=== PATIENT | female | born 1995 | race Caucasian/White ===

== ENCOUNTER 2022-01-23 16:08 | Inpatient (IN) | payer MEDICAID, SELFPAY ==
[~2022-01-23] VITALS: Ht 170.2 cm; Wt 61.8 kg
[2022-01-23 17:22] LABS: HEMATOCRIT 39.4 % (36.0-47.0); MEAN CORPUSCULAR VOLUME 81.9 fl (80.0-96.0); PLATELET COUNT, AUTOMATED 238 10^3/uL (150-450); RED BLOOD COUNT 4.81 10^6/uL (4.00-5.40); WHITE BLOOD COUNT 7.3 10^3/uL (4.0-10.0)
[2022-01-23 17:49] LABS: ETHYL ALCOHOL (ETHANOL) 0.003 % (0.000-0.010)
[2022-01-23 17:50] LABS: BILIRUBIN,DIRECT 0.3 MG/DL (<0.4)
[2022-01-23 17:51] LABS: ACETAMINOPHEN LEVEL < 2.0 UG/ML (10.0-20.0); ALBUMIN 4.5 G/DL (3.2-5.2); ALKALINE PHOSPHATASE 57 U/L (46-116); ALT/SGPT 17 U/L (7.0-40); AST/SGOT 27 U/L (<34); BILIRUBIN,TOTAL 0.9 MG/DL (0.3-1.2); BLOOD UREA NITROGEN 20 MG/DL (9-23); CALCIUM LEVEL 9.4 MG/DL (8.5-10.1); CARBON DIOXIDE LEVEL 20 MMOL/L (20-31); CHLORIDE LEVEL 108 MMOL/L (98-107); CREATININE FOR GFR 0.67 MG/DL (0.55-1.30); GLOMERULAR FILTRATION RATE > 60.0 (>60); GLUCOSE, FASTING 82 MG/DL (60-100); POTASSIUM SERUM 3.7 MMOL/L (3.5-5.1); SALICYLATE LEVEL < 3.0 MG/DL (<30); SODIUM LEVEL 142 MMOL/L (136-145); TOTAL PROTEIN 7.8 G/DL (5.7-8.2)
[2022-01-23 18:34] LABS: HCG, SERUM QUALITATIVE NEGATIVE (NEGATIVE)
[2022-01-23 20:22] LABS: THYROID STIMULATING HORMONE 0.916 uIU/ML (0.55-4.78)
[2022-01-23] MEDS ORDERED: MAALOX 30 ML SUSP *UDC PO PRN (21:15)
[2022-01-23] MEDS ORDERED: MOM 30ML SUSPENSION UDC PO PRN (21:15)
[2022-01-24 00:12] LABS: RSV AMPLIFICATION NEGATIVE (NEGATIVE)
[2022-01-24] MEDS ORDERED: HOME MED LIST COMPLETE! XX SCH (01:20)
[2022-01-24] MEDS ORDERED: MIDAZOLAM INJ 2MG/2ML VIAL IM ONE (03:00)
[2022-01-24 03:48] LABS: AMPHETAMINES LEVEL URINE NEGATIVE (NEGATIVE); BARBITURATES URINE NEGATIVE (NEGATIVE); BENZODIAZEPINES URINE NEGATIVE (NEGATIVE); CANNABINOIDS URINE NEGATIVE (NEGATIVE); COCAINE METABOLITE URINE NEGATIVE (NEGATIVE); METHADONE URINE NEGATIVE (NEGATIVE); OPIATES URINE NEGATIVE (NEGATIVE); PHENCYCLIDINE URINE NEGATIVE (NEGATIVE)
[2022-01-24 06:02] VITALS: BP 120/74
[2022-01-24 18:08] VITALS: BP 115/63
[2022-01-24] MEDS: OLANZapine 5 MG TAB PO SCH (21:00)
[2022-01-25 06:21] VITALS: BP 131/75
[2022-01-25] MEDS: OLANZapine 5 MG TAB PO SCH ×2 (08:24→21:15)
[2022-01-25 18:15] VITALS: BP 146/75
[2022-01-26 06:53] VITALS: BP 117/86
[2022-01-26] MEDS: OLANZapine 5 MG TAB PO SCH ×2 (10:26→21:11)
[2022-01-26] MEDS ORDERED: BENZTROPINE 1 MG TAB PO ONE (10:50)
[2022-01-26 18:00] VITALS: BP 147/81
[2022-01-26] MEDS: CEPACOL LOZENGE PO PRN (18:51)
[2022-01-27 06:48] VITALS: BP 117/66
[2022-01-27] MEDS: OLANZapine 5 MG TAB PO SCH ×2 (09:24→21:00)
[2022-01-27 16:04] VITALS: BP 135/80
[2022-01-28 06:31] VITALS: BP 110/70
[2022-01-28] MEDS: OLANZapine 5 MG TAB PO SCH (09:40)
[2022-01-28] MEDS: OLANZapine ORAL DISINTEGRATING TAB 5MG PO PRN (18:20)
[2022-01-28] MEDS ORDERED: OLANZapine 10 MG TAB PO SCH (21:00)
[2022-01-29] MEDS: OLANZapine ORAL DISINTEGRATING TAB 5MG PO PRN (09:40)
[2022-01-29] MEDS: hydrOXYzine 50 MG TAB PO PRN ×2 (10:41→22:31)
[2022-01-29] MEDS: PALIPERIDONE 3MG ER TAB (INVEGA) PO SCH (20:54)
[2022-01-30 06:00] VITALS: BP 127/78
[2022-01-30 08:05] LABS: CHOLESTEROL RISK RATIO 5.34 (<5); HDL CHOLESTEROL 27.3 MG/DL (>40); LDL CHOLESTEROL 99.9 MG/DL (<100)
[2022-01-30] MEDS: OLANZapine ORAL DISINTEGRATING TAB 5MG PO PRN (10:42)
[2022-01-30 19:09] VITALS: BP 104/60
[2022-01-30] MEDS: PALIPERIDONE 3MG ER TAB (INVEGA) PO SCH (20:51)
[2022-01-30 23:30] VITALS: BP 128/88
[2022-01-30] MEDS ORDERED: BENZTROPINE 1 MG TAB PO ONE (23:40)
[2022-01-30] MEDS ORDERED: LORazepam 1 MG TAB PO ONE (23:40)
[2022-01-31 06:00] VITALS: BP 106/63
[2022-01-31] MEDS: METAMUCIL (PSYLLIUM) PACKET PO SCH (10:20)
[2022-01-31] MEDS: CEPACOL LOZENGE PO PRN (15:25)
[2022-01-31 16:24] VITALS: BP 110/78
[2022-01-31] MEDS: BENZTROPINE 1 MG TAB PO PRN (19:01)
[2022-01-31] MEDS: PALIPERIDONE 3MG ER TAB (INVEGA) PO SCH (21:42)
[2022-01-31] MEDS: ACETAMINOPHEN TAB 650MG DOSE (2X325MG) PO PRN (21:42)
[2022-02-01] MEDS: MIRALAX *UNIT DOSE* 17GM PACKET PO SCH (09:00)
[2022-02-01] MEDS: METAMUCIL (PSYLLIUM) PACKET PO SCH (09:00)
[2022-02-01] MEDS: PALIPERIDONE 3MG ER TAB (INVEGA) PO SCH (21:32)
[2022-02-01] MEDS: CEPACOL LOZENGE PO PRN (22:51)
[2022-02-01] MEDS: OLANZapine ORAL DISINTEGRATING TAB 5MG PO PRN (22:51)
[2022-02-02 06:40] VITALS: BP 111/71
[2022-02-02] MEDS: MIRALAX *UNIT DOSE* 17GM PACKET PO SCH (09:00)
[2022-02-02 16:44] VITALS: BP 112/56
[2022-02-02] MEDS: OLANZapine ORAL DISINTEGRATING TAB 5MG PO PRN (19:57)
[2022-02-02] MEDS: PALIPERIDONE 3MG ER TAB (INVEGA) PO SCH (19:57)
[2022-02-02] MEDS: BENZTROPINE 1 MG TAB PO PRN (23:03)
[2022-02-02] MEDS: hydrOXYzine 50 MG TAB PO PRN (23:04)
[2022-02-03 07:04] VITALS: BP 119/86
[2022-02-03] MEDS: MIRALAX *UNIT DOSE* 17GM PACKET PO SCH (09:00)
[2022-02-03] MEDS: OLANZapine ORAL DISINTEGRATING TAB 5MG PO PRN (10:02)
[2022-02-03] MEDS: PALIPERIDONE 6MG ER TAB (INVEGA) PO SCH (20:45)
[2022-02-04 06:39] VITALS: BP 137/72
[2022-02-04] MEDS: ACETAMINOPHEN TAB 650MG DOSE (2X325MG) PO PRN (07:39)
[2022-02-04] MEDS: MIRALAX *UNIT DOSE* 17GM PACKET PO SCH (07:41)
[2022-02-04] MEDS: PALIPERIDONE 6MG ER TAB (INVEGA) PO SCH (20:01)
[2022-02-04 20:17] VITALS: BP 113/61
[2022-02-05 06:28] VITALS: BP 98/62
[2022-02-05] MEDS: MIRALAX *UNIT DOSE* 17GM PACKET PO SCH (09:00)
[2022-02-05 18:06] VITALS: BP 124/80
[2022-02-05] MEDS: PALIPERIDONE 6MG ER TAB (INVEGA) PO SCH (21:42)
[2022-02-06 06:33] VITALS: BP 115/79
[2022-02-06] MEDS: MIRALAX *UNIT DOSE* 17GM PACKET PO SCH (09:00)
[2022-02-06] MEDS: OLANZapine ORAL DISINTEGRATING TAB 5MG PO PRN (10:01)
[2022-02-06] MEDS: SERTRALINE HCL 25 MG TABLET PO SCH (21:28)
[2022-02-06] MEDS: risperiDONE 2 MG TAB PO SCH (21:28)
[2022-02-07 06:32] VITALS: BP 106/88
[2022-02-07] MEDS: MIRALAX *UNIT DOSE* 17GM PACKET PO SCH (08:08)
[2022-02-07 19:55] VITALS: BP 80/48
[2022-02-07 20:40] VITALS: BP 106/66
[2022-02-07] MEDS: risperiDONE 2 MG TAB PO SCH (20:49)
[2022-02-07] MEDS: SERTRALINE HCL 25 MG TABLET PO SCH (20:49)
[2022-02-08 06:29] VITALS: BP 139/85
[2022-02-08] MEDS: MIRALAX *UNIT DOSE* 17GM PACKET PO SCH (07:34)
[2022-02-08 18:34] VITALS: BP 103/58
[2022-02-08] MEDS: SERTRALINE HCL 25 MG TABLET PO SCH (21:06)
[2022-02-08] MEDS: risperiDONE 2 MG TAB PO SCH (21:06)
[2022-02-09 06:25] VITALS: BP 111/68
[2022-02-09] MEDS: MIRALAX *UNIT DOSE* 17GM PACKET PO SCH (08:15)
[2022-02-09] MEDS: OLANZapine ORAL DISINTEGRATING TAB 5MG PO PRN (09:12)
[2022-02-09 18:14] VITALS: BP 102/54
[2022-02-09] MEDS: SERTRALINE HCL 25 MG TABLET PO SCH (20:49)
[2022-02-09] MEDS: risperiDONE 2 MG TAB PO SCH (20:49)
[2022-02-10 06:39] VITALS: BP 112/73
[2022-02-10] MEDS: ACETAMINOPHEN TAB 650MG DOSE (2X325MG) PO PRN (07:54)
[2022-02-10] MEDS: MIRALAX *UNIT DOSE* 17GM PACKET PO SCH (07:55)
[2022-02-10 16:26] VITALS: BP 117/70
[2022-02-10] MEDS: risperiDONE 2 MG TAB PO SCH (21:16)
[2022-02-10] MEDS: SERTRALINE HCL 25 MG TABLET PO SCH (21:16)
[2022-02-11 06:35] VITALS: BP 99/58
[2022-02-11] MEDS: MIRALAX *UNIT DOSE* 17GM PACKET PO SCH (07:41)
[2022-02-11] MEDS: ACETAMINOPHEN TAB 650MG DOSE (2X325MG) PO PRN (14:49)
[2022-02-11] MEDS: OLANZapine ORAL DISINTEGRATING TAB 5MG PO PRN (15:50)
[2022-02-11 16:51] VITALS: BP 134/72
[2022-02-11] MEDS: SERTRALINE HCL 25 MG TABLET PO SCH (21:54)
[2022-02-11] MEDS: risperiDONE 2 MG TAB PO SCH (21:54)
[2022-02-12] MEDS: MIRALAX *UNIT DOSE* 17GM PACKET PO SCH (08:00)
[2022-02-12] MEDS: ACETAMINOPHEN TAB 650MG DOSE (2X325MG) PO PRN (11:16)
[2022-02-12] MEDS: OLANZapine ORAL DISINTEGRATING TAB 5MG PO PRN (11:17)
[2022-02-12] MEDS: SERTRALINE HCL 25 MG TABLET PO SCH (21:13)
[2022-02-12] MEDS: risperiDONE 2 MG TAB PO SCH (21:13)
[2022-02-13] MEDS: MIRALAX *UNIT DOSE* 17GM PACKET PO SCH (07:45)
[2022-02-13] MEDS: BENZTROPINE 1 MG TAB PO PRN (09:25)
[2022-02-13 18:40] VITALS: BP 132/85
[2022-02-13] MEDS: risperiDONE 2 MG TAB PO SCH (19:54)
[2022-02-13] MEDS: SERTRALINE HCL 25 MG TABLET PO SCH (19:54)
[2022-02-13] MEDS: ACETAMINOPHEN TAB 650MG DOSE (2X325MG) PO PRN (20:01)
[2022-02-14 06:13] VITALS: BP 115/76
[2022-02-14] MEDS: MIRALAX *UNIT DOSE* 17GM PACKET PO SCH (08:17)
[2022-02-14] MEDS: BENZTROPINE 1 MG TAB PO PRN (08:36)
[2022-02-14 18:00] VITALS: BP 90/60
[2022-02-14] MEDS: risperiDONE 2 MG TAB PO SCH (21:20)
[2022-02-14] MEDS: SERTRALINE HCL 25 MG TABLET PO SCH (21:20)
[2022-02-15 06:39] VITALS: BP 112/63
[2022-02-15] MEDS: MIRALAX *UNIT DOSE* 17GM PACKET PO SCH (09:00)
[2022-02-15] MEDS: OLANZapine ORAL DISINTEGRATING TAB 5MG PO PRN (17:43)
[2022-02-15] MEDS: BENZTROPINE 1 MG TAB PO PRN (17:43)
[2022-02-15] MEDS: SERTRALINE HCL 25 MG TABLET PO SCH (21:07)
[2022-02-15] MEDS: risperiDONE 2 MG TAB PO SCH (21:07)
[2022-02-16 06:35] VITALS: BP 121/66
[2022-02-16] MEDS: MIRALAX *UNIT DOSE* 17GM PACKET PO SCH (09:00)
[2022-02-16] MEDS: OLANZapine ORAL DISINTEGRATING TAB 5MG PO PRN (10:00)
[2022-02-16] MEDS: BENZTROPINE 1 MG TAB PO PRN (10:00)
[2022-02-16] MEDS: SERTRALINE HCL 25 MG TABLET PO SCH (21:00)
[2022-02-16] MEDS: risperiDONE 2 MG TAB PO SCH (21:00)
[2022-02-17 07:01] VITALS: BP 143/64
[2022-02-17] MEDS: MIRALAX *UNIT DOSE* 17GM PACKET PO SCH (08:38)
[2022-02-17] MEDS: hydrOXYzine 50 MG TAB PO PRN (15:19)
[2022-02-17] MEDS: ACETAMINOPHEN TAB 650MG DOSE (2X325MG) PO PRN (15:19)
[2022-02-17 19:00] VITALS: BP 120/78
[2022-02-17] MEDS: risperiDONE 2 MG TAB PO SCH (21:11)
[2022-02-17] MEDS: SERTRALINE HCL 25 MG TABLET PO SCH (21:11)
[2022-02-17] MEDS: traZODone 50 MG TAB PO PRN (21:13)
[2022-02-18 06:49] VITALS: BP 113/72
[2022-02-18] MEDS: BENZTROPINE 1 MG TAB PO PRN (08:16)
[2022-02-18] MEDS: hydrOXYzine 50 MG TAB PO PRN (08:16)
[2022-02-18] MEDS: MIRALAX *UNIT DOSE* 17GM PACKET PO SCH (08:22)
[2022-02-18 17:49] VITALS: BP 133/78
[2022-02-18] MEDS: SERTRALINE HCL 25 MG TABLET PO SCH (22:21)
[2022-02-18] MEDS: risperiDONE 2 MG TAB PO SCH (22:22)
[2022-02-19 06:38] VITALS: BP 120/67
[2022-02-19] MEDS: MIRALAX *UNIT DOSE* 17GM PACKET PO SCH (08:46)
[2022-02-19 18:11] VITALS: BP 118/65
[2022-02-19] MEDS: risperiDONE 3 MG TAB PO SCH (20:57)
[2022-02-19] MEDS: SERTRALINE HCL 25 MG TABLET PO SCH (20:57)
[2022-02-20 06:37] VITALS: BP 105/64
[2022-02-20] MEDS: MIRALAX *UNIT DOSE* 17GM PACKET PO SCH (07:55)
[2022-02-20 18:05] VITALS: BP 158/66
[2022-02-20] MEDS: SERTRALINE HCL 25 MG TABLET PO SCH (21:27)
[2022-02-20] MEDS: risperiDONE 3 MG TAB PO SCH (21:27)
[2022-02-21] MEDS: MIRALAX *UNIT DOSE* 17GM PACKET PO SCH (09:00)
[2022-02-21] MEDS ORDERED: PALIPERIDONE PAL 156MG/1ML INJ(INVEGA)(FREE PSY INPT ONLY) IM ONE (09:00)
[2022-02-21 18:09] VITALS: BP 107/70
[2022-02-21] MEDS: SERTRALINE HCL 25 MG TABLET PO SCH (20:57)
[2022-02-22 06:52] VITALS: BP 100/63
[2022-02-22] MEDS: MIRALAX *UNIT DOSE* 17GM PACKET PO SCH (08:56)
[2022-02-22 16:35] VITALS: BP 119/71
[2022-02-22] MEDS: SERTRALINE HCL 25 MG TABLET PO SCH (21:13)
[2022-02-23 06:43] VITALS: BP 110/63
[2022-02-23] MEDS: MIRALAX *UNIT DOSE* 17GM PACKET PO SCH (09:00)
[2022-02-23 18:00] VITALS: BP 112/60
[2022-02-23] MEDS: SERTRALINE HCL 25 MG TABLET PO SCH (20:58)
[2022-02-24 06:26] VITALS: BP 111/54
[2022-02-24] MEDS: ACETAMINOPHEN TAB 650MG DOSE (2X325MG) PO PRN (08:17)
[2022-02-24] MEDS: MIRALAX *UNIT DOSE* 17GM PACKET PO SCH (09:00)
[2022-02-24 16:11] VITALS: BP 102/59
[2022-02-24] MEDS: SERTRALINE HCL 25 MG TABLET PO SCH (21:42)
[2022-02-25 07:05] VITALS: BP 90/55
[2022-02-25] MEDS: MIRALAX *UNIT DOSE* 17GM PACKET PO SCH (09:00)
[2022-02-25 16:15] VITALS: BP 107/65
[2022-02-25] MEDS: SERTRALINE HCL 25 MG TABLET PO SCH (20:49)
[2022-02-26 06:27] VITALS: BP 95/56
[2022-02-26] MEDS: MIRALAX *UNIT DOSE* 17GM PACKET PO SCH (08:07)
[2022-02-26 16:15] VITALS: BP 100/60
[2022-02-26] MEDS: SERTRALINE HCL 25 MG TABLET PO SCH (20:18)
[2022-02-27 06:16] VITALS: BP 103/54
[2022-02-27] MEDS: MIRALAX *UNIT DOSE* 17GM PACKET PO SCH (08:18)
[2022-02-27 19:28] VITALS: BP 127/72
[2022-02-27] MEDS: SERTRALINE HCL 25 MG TABLET PO SCH (20:43)
[2022-02-28 06:08] VITALS: BP 108/58
[2022-02-28] MEDS: MIRALAX *UNIT DOSE* 17GM PACKET PO SCH (09:24)
[2022-02-28 16:35] VITALS: BP 104/62
[2022-02-28] MEDS: SERTRALINE HCL 25 MG TABLET PO SCH (21:00)
[2022-03-01 06:33] VITALS: BP 104/51
[2022-03-01] MEDS: MIRALAX *UNIT DOSE* 17GM PACKET PO SCH (09:04)
[2022-03-01 16:18] VITALS: BP 102/62
[2022-03-01] MEDS: SERTRALINE HCL 25 MG TABLET PO SCH (20:04)
[2022-03-02 06:22] VITALS: BP 106/62
[2022-03-02] MEDS: MIRALAX *UNIT DOSE* 17GM PACKET PO SCH (07:34)
[2022-03-02 16:25] VITALS: BP 98/56
[2022-03-02] MEDS ORDERED: FEXOFENADINE 60MG TAB PO PRN (17:30)
[2022-03-02] MEDS: SERTRALINE HCL 25 MG TABLET PO SCH (20:30)
[2022-03-03 06:12] VITALS: BP 93/51
[2022-03-03] MEDS: MIRALAX *UNIT DOSE* 17GM PACKET PO SCH (08:07)
[2022-03-03 18:13] VITALS: BP 108/53
[2022-03-03] MEDS: SERTRALINE HCL 25 MG TABLET PO SCH (20:16)
[2022-03-03] MEDS: MICONAZOLE-7 VAGINAL 2% CREAM 47.7GM PV SCH (21:00)
[2022-03-04 06:49] VITALS: BP 108/56
[2022-03-04] MEDS: MIRALAX *UNIT DOSE* 17GM PACKET PO SCH (09:00)
[2022-03-04 19:01] VITALS: BP 107/63
[2022-03-04] MEDS: SERTRALINE HCL 25 MG TABLET PO SCH (22:03)
[2022-03-04] MEDS: MICONAZOLE-7 VAGINAL 2% CREAM 47.7GM PV SCH (22:09)
[2022-03-05 06:00] VITALS: BP 92/55
[2022-03-05 06:02] VITALS: BP 98/58
[2022-03-05] MEDS: MIRALAX *UNIT DOSE* 17GM PACKET PO SCH (08:38)
[2022-03-05 18:33] VITALS: BP 131/75
[2022-03-05] MEDS: MICONAZOLE-7 VAGINAL 2% CREAM 47.7GM PV SCH ×2 (21:00→23:48)
[2022-03-05] MEDS: SERTRALINE HCL 25 MG TABLET PO SCH (21:27)
[2022-03-05] MEDS: traZODone 50 MG TAB PO PRN (23:45)
[2022-03-05] MEDS: hydrOXYzine 50 MG TAB PO PRN (23:45)
[2022-03-05] MEDS: ACETAMINOPHEN TAB 650MG DOSE (2X325MG) PO PRN (23:46)
[2022-03-06 06:33] VITALS: BP 107/75
[2022-03-06] MEDS: OLANZapine ORAL DISINTEGRATING TAB 5MG PO PRN (08:02)
[2022-03-06] MEDS: MIRALAX *UNIT DOSE* 17GM PACKET PO SCH (08:05)
[2022-03-06] MEDS ORDERED: PALIPERIDONE PAL 156MG/1ML INJ(INVEGA)(FREE PSY INPT ONLY) IM ONE (09:00)
[2022-03-06] MEDS ORDERED: INVE156I IM (10:55)
[2022-03-06] MEDS ORDERED: MICO45CR2 PV (10:55)
[2022-03-06] MEDS ORDERED: MIRA1POW3 PO (10:55)
[2022-03-06] MEDS ORDERED: FEXO60TA99 PO (10:55)
[2022-03-06] MEDS ORDERED: BENZ0.5T23 PO (10:55)
[2022-03-06] MEDS ORDERED: SERT25TA21 PO (10:55)
[2022-03-06 19:31] VITALS: BP 126/86
[2022-03-06] MEDS: SERTRALINE HCL 25 MG TABLET PO SCH (21:05)
[2022-03-06] MEDS: MICONAZOLE-7 VAGINAL 2% CREAM 47.7GM PV SCH (21:06)
[2022-03-07 06:25] VITALS: BP_SYST 118; BP_SYST 131; BP_DIAS 74; BP_DIAS 77
[2022-03-07] MEDS: hydrOXYzine 50 MG TAB PO PRN (09:27)
[2022-03-07] MEDS: MIRALAX *UNIT DOSE* 17GM PACKET PO SCH (09:29)
== END 2022-03-07 09:45 | disposition home or self-care (01) | DRG 750 ==
LOC: M ED 16:08 → M ED INP 21:12 → M PSY 01-24 04:39
PROVIDERS: ADMIT Psychiatry & Neurology Psychiatry; ATTEND Psychiatry & Neurology Psychiatry
DX: F25.9 Schizoaffective disorder, unspecified (principal); F43.10 Post-traumatic stress disorder, unspecified; F60.3 Borderline personality disorder; Z56.0 Unemployment, unspecified; R45.851 Suicidal ideations; Z20.822 Contact with and (suspected) exposure to COVID-19; Z91.410 Personal history of adult physical and sexual abuse